=== PATIENT | female | born 1975 | race Caucasian/White ===

== ENCOUNTER → 2016-11-27 | Outpatient (CLI) | payer BC ==
[~2016-11-27] MED LIST: MTR600X PO; OXYC5TAB PO; PRENTAB26 PO
[2016-11-27 13:16] LABS: ESTIMATED AVERAGE GLUCOSE 174 mg/dl; HA1C FLAG Normal (Normal)
[2016-11-27 13:32] LABS: ALT/SGPT 23 U/L (12-78); AST/SGOT 14 U/L (15-37); BLOOD UREA NITROGEN 10 mg/dl (7-18); BUN/CREATININE RATIO 14.6 (10-20); CALCIUM 8.8 mg/dl (8.5-10.1); CARBON DIOXIDE 28 mmol/L (21-32); CHLORIDE 104 mmol/L (98-107); GLUCOSE 136 mg/dl (70-99); POTASSIUM 4.2 mmol/L (3.5-5.1); SODIUM 139 mmol/L (136-145)
[2016-11-27 13:35] LABS: ALKALINE PHOSPHATASE 100 U/L (45-117); CHOLESTEROL 198 mg/dl (0-200); CHOLESTEROL/HDL RATIO 6.2; HDL CHOLESTEROL 32 mg/dl; LDL CHOLESTEROL CALCULATED 136 mg/dl; TRIGLYCERIDES 152 mg/dl (0-150); VERY LOW DENSITY LIPOPROT CALC 30 mg/dl
== END | disposition home or self-care (01) ==
LOC: C.LABBFT 09:57
PROVIDERS: ATTEND Nurse Practitioner
DX: R73.09 Other abnormal glucose (principal)

== ENCOUNTER → 2017-01-16 | Outpatient (CLI) | payer BC ==
[2017-01-16 12:47] LABS: THYROID STIMULATING HORMONE 1.23 uIu/ml (0.300-4.500)
[2017-01-16 13:03] LABS: RATIO 20.8 mcg/mg (0-30.0)
== END | disposition home or self-care (01) ==
LOC: C.LAB1850 10:51
PROVIDERS: ATTEND Internal Medicine Endocrinology, Diabetes & Metabolism
DX: E11.9 Type 2 diabetes mellitus without complications (principal)

== ENCOUNTER → 2017-01-30 | Outpatient (CLI) | payer BC ==
--- NOTE | 2017-01-30 11:20 | DIAGNOSTIC IMAGING REPORT ---
BILIARY ABDOMEN LIMITED CLINICAL HISTORY: 41 years-old Female presenting with R10.13 Abdominal pain, epigastricpt is s/o cholecystectomy. Plea. TECHNIQUE: Real-time grayscale and limited color Doppler ultrasound imaging of the abdomen limited to the right upper quadrant was performed. COMPARISON: Ultrasound from 02/14/2015 and MRCP from 02/15/2015. FINDINGS: Pancreas: Visualized portions of the pancreatic head and body normal. Liver: Markedly hyperechogenic parenchyma with obscuration of the right hemidiaphragm, likely indicating marked hepatic steatosis. Masslike isoechoic focus with a hypoechoic rim within the periphery or immediately adjacent to the right hepatic lobe of the liver near the gallbladder fossa measuring 3.2 x 2.9 x 2.5 cm. Main portal vein patent with normal directional flow. Biliary: No intrahepatic biliary ductal dilatation. Common bile duct measures up to 6 mm in diameter. Gallbladder: Surgically absent. Right kidney: Normal in appearance. No hydronephrosis. Ascites: None. IMPRESSION: 1. Hepatic steatosis. 2. Indeterminate masslike region in the gallbladder fossa. Differential considerations include hepatic mass, granulation tissue in the gallbladder fossa, or duodenum among other differential considerations. Further evaluation with CT should be considered given the concern for possible neoplasm. 3. Postsurgical changes of cholecystectomy. The report will be called/faxed according to standard departmental protocol. Electronically signed by: Dmitriy Mckeon M.D. 01/30/2017 11:19 AM Dictated Date/Time: 01/30/2017 11:14 AM
== END | disposition home or self-care (01) ==
LOC: C.ULTR 10:38
PROVIDERS: ATTEND Nurse Practitioner
DX: R10.13 Epigastric pain (principal); K76.0 Fatty (change of) liver, not elsewhere classified; Z90.49 Acquired absence of other specified parts of digestive tract

== ENCOUNTER → 2017-01-31 | Outpatient (CLI) | payer BC ==
[~2017-01-31] MED LIST changes: +OPTIRAY 320 IV PRN
--- NOTE | 2017-01-31 15:52 | DIAGNOSTIC IMAGING REPORT ---
ABD/PELVIS IV AND ORAL CONT CLINICAL HISTORY: 41 years-old Female presenting with R10.13 Abdominal pain, [id number] Abnormal findings on image. TECHNIQUE: Multidetector CT of the abdomen and pelvis was performed after the administration of oral and intravenous contrast. IV contrast: 93 mL of Optiray 320. A dose lowering technique was used consistent with the principles of ALARA (as low as reasonably achievable). COMPARISON: MRCP from 2016 and ultrasound from 01/30/2017. CT DOSE (mGy.cm): The estimated cumulative dose is 777.33 mGy.cm. FINDINGS: Press Hand Supervisor topogram: Cholecystectomy clips. Lung bases: Lung bases clear. Normal heart size. No pericardial or pleural effusion. Liver: Normal morphology. No liver lesion. However, there is a round hypodense subcapsular collection in the gallbladder fossa measuring 2.9 x 2.2 cm. This correlates to the sonographic finding. No appreciable enhancement. No additional subcapsular fluid. No perihepatic free fluid. No adjacent inflammatory change. Biliary: No intrahepatic or extrahepatic biliary ductal dilatation. Gallbladder surgically absent. Pancreas: Normal. Spleen: Normal. Adrenal glands: Normal. Kidneys and ureters: Numerous nonobstructing bilateral renal calculi measuring up to 5 mm on the right and 4 mm on the left. Extrarenal pelvises. No hydronephrosis. Normal parenchymal enhancement. Normal ureters. Bladder: Normal. Pelvic organs: Uterus and ovaries normal. Dominant right ovarian follicle. Bowel: Normal appendix. No bowel obstruction. Peritoneal cavity: No free fluid or intraperitoneal gas. Lymph nodes: No enlarged lymph nodes in the abdomen or pelvis. Vasculature: Aorta and IVC patent and normal in caliber. Abdominal wall: Normal. Musculoskeletal: Normal. IMPRESSION: 1. The sonographic finding correlates to a round collection in the gallbladder fossa. Given the complexity on ultrasound and nonenhancement on CT, this is most consistent with postsurgical hematoma, which is favored over a biloma. No associated inflammatory change. Notably, no convincing evidence of a bile leak. 2. Postsurgical changes of cholecystectomy. 3. No suspicious hepatic mass. 4. Bilateral nephrolithiasis. Electronically signed by: Dmitriy Mckeon M.D. 01/31/2017 3:51 PM Dictated Date/Time: 01/31/2017 3:43 PM
== END | disposition home or self-care (01) ==
LOC: C.CTS 14:57
PROVIDERS: ATTEND Nurse Practitioner
DX: R10.13 Epigastric pain (principal); R93.2 Abnormal findings on diagnostic imaging of liver and biliary tract; N20.0 Calculus of kidney; Z90.49 Acquired absence of other specified parts of digestive tract

== ENCOUNTER → 2017-02-01 | Outpatient (CLI) | payer BC ==
[~2017-02-01] MED LIST changes: -OPTIRAY 320 IV PRN
== END | disposition home or self-care (01) ==
LOC: C.PAPS 09:06
PROVIDERS: ATTEND Obstetrics & Gynecology
DX: Z01.419 Encounter for gynecological examination (general) (routine) without abnormal findings (principal); J18.1 Lobar pneumonia, unspecified organism

== ENCOUNTER → 2017-02-02 | Outpatient (CLI) | payer BC ==
[2017-02-02 12:25] LABS: BASO % 0.3 %; BASO ABS # 0.02 K/uL (0-0.2); COMPLETE YES; EOS % 1.5 %; HEMATOCRIT 38.7 % (37-47); IG% 0.4 %; LYMPH % 24.2 %; LYMPH ABS # 1.91 K/uL (1.2-3.4); MEAN CELL VOLUME 80.3 fL (80-100); MEAN CORPUSCULAR HEMOGLOBIN 25.3 pg (25-34); MEAN CORPUSCULAR HGB CONC 31.5 g/dl (32-36); MEAN PLATELET VOLUME 10.3 fL (7.4-10.4); MONO % 6.7 %; NEUT % 66.9 %; PLATELET COUNT 278 K/uL (130-400); RED BLOOD COUNT 4.82 M/uL (4.2-5.4); WHITE BLOOD COUNT 7.89 K/uL (4.8-10.8)
[2017-02-02 12:30] LABS: BLOOD UREA NITROGEN 9 mg/dl (7-18); CREATININE 0.72 mg/dl (0.60-1.20)
[2017-02-02 12:32] LABS: C-REACTIVE PROTEIN < 0.29 mg/dl (0-0.29)
== END | disposition home or self-care (01) ==
LOC: C.LABBFT 09:08
PROVIDERS: ATTEND Nurse Practitioner
DX: R10.13 Epigastric pain (principal); E11.9 Type 2 diabetes mellitus without complications; R93.2 Abnormal findings on diagnostic imaging of liver and biliary tract

== ENCOUNTER → 2017-02-09 | Outpatient (CLI) | payer BC ==
[2017-02-09 17:09] LABS: LIPASE 159 U/L (73-393)
== END | disposition home or self-care (01) ==
LOC: C.LABBFT 13:38
PROVIDERS: ATTEND Internal Medicine Endocrinology, Diabetes & Metabolism
DX: R10.13 Epigastric pain (principal)